=== PATIENT | female | born 1985 ===

== ENCOUNTER → 2019-10-18 09:20 | Outpatient (CLI) | payer OTHER, MEDICAID, SELFPAY ==
--- NOTE | 2019-10-18 | DI.US.S_ITS ---
PROCEDURE: US OB >= 14 WEEKS FETUS INDICATIONS: ANATOMY SCAN OUTSIDE/PRIOR DATING DATA: Last menstrual period (LMP): 06/01/19. LMP-based estimated date of delivery (GEOVANNA): 03/07/20. First dating scan (date and location): Outside facility. Estimated date of delivery (GEOVANNA) from first dating scan: 03/07/20. TECHNIQUE: Real-time scanning was performed of the fetus, with image documentation and biometric measurements. Endovaginal scanning: Not performed COMPARISON: None. FINDINGS: General: A single living intrauterine gestation is present. Presentation: Vertex Placenta: Placental position is posterior, without previa. Amniotic fluid index: 10 cm, normal range is 5-24 cm. heart rate: 140 beats per minute. Maternal cervical canal: 4.8 cm long. Normal lower limit is 2.5 cm. biometrics: Biparietal diameter: 4.3 cm, 18 weeks, 6 days Head circumference: 16.2 cm, 19 weeks, zero Abdominal circumference: 13.7 cm, 19 weeks, one day Femur length: 3.1 cm, 19 weeks, 6 days Estimated gestational age from initial scan: 19 weeks 6 days. Composite gestational age from present scan: 19 weeks, 2 days Estimated weight and percentile: 282 g, 16% Measurement variability for biometric dating: +/- 7 days from 14 weeks to 15 weeks 6 days gestation, +/- 10 days from 16 weeks to 21 weeks 6 days gestation, +/- 2 weeks from 22 weeks to 27 weeks 6 days gestation, +/- 3 weeks for 28 weeks gestation or later. weight reference: 4500 g or EFW >90/95% is considered macrosomia or large for gestational age. EFW <10% is small for gestational age. EFW 5% or less is considered intra-uterine growth restriction. Anatomic survey: Neuro: Ventricles are non-dilated at less than 10 mm. Cisterna magna is normal at 3-11 mm. Cerebellum is normal in size and morphology. Nuchal skin fold: Normal at less than 6 mm between 14-21 weeks gestational age. Face: Nose and lips, facial profile are normal. Spine: No evidence for spina bifida. Heart: 4-chambered heart is present, with normal ventricular outflow tracts. Diaphragm: Diaphragm is intact. Stomach: Left-sided stomach is present. Kidneys: No hydronephrosis. Normal is less than 5 mm in 2nd trimester, less than 7 mm in 3rd trimester. Cord: 3-vessel cord has orthotopic insertion. Bladder: Normal in size. Extremities: All 4 extremities identified. IMPRESSION: Single live intrauterine with fetus in cephalic presentation. heart rate is 140 beats per minute. Normal amount of amniotic fluid. Normal growth. Normal anatomic survey. Dictated by: Lai Mello M.D. on 10/18/2019 at 12:33 Approved by: Lai Mello M.D. on 10/18/2019 at 12:38
== END ==
PROVIDERS: Referring Provider Family Medicine; Visit Provider Family Medicine
DX: Z36.89 Encounter for other specified antenatal screening (principal); Z3A.19 19 weeks gestation of pregnancy
CPT/HCPCS: 76811

== ENCOUNTER → 2020-02-12 11:32 | Outpatient (ROUT) | payer OTHER, MEDICAID, SELFPAY | PROVIDERS: Visit Provider Family Medicine | DX: R82.71 Bacteriuria (principal) | CPT/HCPCS: 87081 ==

== ENCOUNTER → 2020-03-07 14:49 | Outpatient (CLI) | payer OTHER, MEDICAID, SELFPAY ==
[2020-03-08 06:00] LABS: COVID19 Sendout Not Detected (Not Detect)
== END ==
PROVIDERS: Visit Provider Physician Assistant
DX: Z11.59 Encounter for screening for other viral diseases (principal)
CPT/HCPCS: 85461; 87635

== ENCOUNTER 2020-03-08 05:11 | Inpatient (IN) | payer OTHER, MEDICAID, SELFPAY ==
[2020-03-08 06:12] VITALS: BP 122/75
[2020-03-08 06:47] LABS: Add Manual Diff / Slide Review NO; Basophils Absolute Auto 100 /uL (0-100); Basophils Percent Auto 0.9 % (0-2); Eosinophils Absolute Auto 200 /uL (0-450); Eosinophils Percent Auto 1.3 % (2-4); Hematocrit 33.8 % (36-46); Lymphocytes Absolute Auto 2200 /uL (1100-4500); Lymphocytes Percent Auto 15.6 % (25-40); Mean Corpuscular HGB Conc 32.6 % (30-36); Mean Corpuscular Hemoglobin 25.9 PG (26-34); Mean Corpuscular Volume 79.4 fL (80-100); Monocytes Absolute Auto 700 /uL (0-900); Monocytes Percent Auto 5.2 % (3-14); Neutrophils Absolute Auto 10900 /uL (1500-7000); Platelet Count 250 X10^3/uL (150-400); Red Blood Cell Count 4.25 X10^6/uL (4.0-5.2); Red Cell Distribution Width 14.6 % (11.6-14.8); White Blood Cell Count 14.2 X10^3/uL (4.5-11.0)
[2020-03-08] MEDS: LACTATED RINGERS 1,000 ML 100 ML IV (07:44)
[2020-03-08] MEDS: OXYTOCIN PREMIX 30 UNIT/500 ML PLAST..BAG IV (08:06)
--- NOTE | 2020-03-08 09:07 | PM.OBHP.1 ---
OB HPI Date/Time Date of admission: 03/08/20 Date Patient Seen: 03/08/20 Time Patient Seen: 09:07 History of Present Condition Chief complaint: Evaluation of labor : 3 Para: 1 Estimated Date of Delivery: 03/08/20 Estimated Gestational Age (weeks): 40 Narrative: Mitzi Borwn is a 35 year old female with EDC today. Forty weeks. Uncomplicated . Good dates. Healthy patient. No other issues. Was in her usual state health yesterday doing well good movement around midnight she ruptured with clear fluid. Good movement throughout the night around 3:00 a.m. started having increased contractions presented here around 11/11/2029 period was having intermittent contractions. Due to the fact that no change was made Pitocin was began. No other changes. Patient has had epidural. Excellent results. Patient has a history of depression was started on sertraline during this . No complications. Low-dose and working well. Indications Other reason(s) for admission: A room History of Present care: good care Dating criteria: LMP confirmed by 1st trimester US Ultrasounds: normal mid trimester US Obstetrical complications: none Medical complications: psychiatric Preadmission Labs Blood type: 0 (-) negative -: Antibody screen: negative, Cystic fibrosis screen: unknown, GBS status: negative, HBsAG: negative, HIV: negative, HSV 1: negative, HSV 2: negative and RPR/VDLR: negative -: Chlamydia screen: not detected and Gonorrhea screen: not detected -: Rubella: immune and Varicella: unknown HCT: 33 HCAB: negative PAP: Normal Integrated screen: Normal 1 hr GTT: 92 Prior (ies) History: 07/14/2016 miscarriage [id number] weeks 20 hours labor female 7.125 lb healthy Evaluation Evaluation Baseline heart rate: 130 Variability: Marked (>25) monitor accelerations: Uniform monitor decelerations: Absent Uterine Contraction Intensity: Moderate Category of Tracing: Reactive Cervical dilation (cm): 2 Cervical effacement (%): 70 station: -1 Laboratory results: Laboratory Tests 03/08/20 03/08/20 06:35 06:35 WBC 14.2 H RBC 4.25 Hgb 11.0 L Hct 33.8 L MCV 79.4 L MCH 25.9 L MCHC 32.6 RDW 14.6 Plt Count 250 Neut % (Auto) 77.0 H Lymph % (Auto) 15.6 L Overton % (Auto) 5.2 Eos % (Auto) 1.3 L Baso % (Auto) 0.9 Neut # (Auto) 79289 H Lymph # (Auto) 2200 Overton # (Auto) 700 Eos # (Auto) 200 Baso # (Auto) 100 Blood Type O Negative Antibody Screen Negative [facility] Social History Smoking Status: Never smoker Exam Vital Signs (past 8 hours): - 03/08/20 06:12 Blood Pressure 122/75 Narrative Exam Narrative: Alert smiling female in no acute distress. Comfortable lying in bed. Lungs are clear. Heart regular rate and rhythm. Abdomen is gravid vertex nontender. Extremities unremarkable. Neurologic exam is normal Objective Labs Result Diagrams: 03/08/20 06:35 Labs: Laboratory Results - last 24 hr 03/08/20 03/08/20 06:35 06:35 WBC 14.2 H RBC 4.25 Hgb 11.0 L Hct 33.8 L MCV 79.4 L MCH 25.9 L MCHC 32.6 RDW 14.6 Plt Count 250 Neut % (Auto) 77.0 H Lymph % (Auto) 15.6 L Overton % (Auto) 5.2 Eos % (Auto) 1.3 L Baso % (Auto) 0.9 Neut # (Auto) 26218 H Lymph # (Auto) 2200 Overton # (Auto) 700 Eos # (Auto) 200 Baso # (Auto) 100 Blood Type O Negative Antibody Screen Negative Assessment and Plan Assessment and Plan Assessment and Plan narrative: Forty week intrauterine status post rupture now on Pitocin for augmentation and epidural. Will continue to monitor baby looks great. Will continue to monitor re-evaluate 2-4 hours
--- NOTE | 2020-03-08 13:13 | PM.OBPNLAB ---
Date/Time Date Patient Seen: 03/08/20 Time Patient Seen: 13:13 Pain Control Pain control: tolerating well Pelvic Exam Dilation (cm): 5 Effacement (%): 70 station: -1 Amniotic membrane status: Ruptured Contractions Contraction intensity: Moderate Status status: Category l Assessment and Plan Assessment: active labor Comments: Doing well. Will continue to use Pitocin. May need to consider epidural change. Re-evaluate in 1 hour so
--- NOTE | 2020-03-08 15:39 | P.PCNOB_ITS ---
Labor & Delivery Delivery date: 03/08/20 Intrapartal events: None Cervical ripening method: none Induction method: none Delivery augmentation: pitocin Delivery monitor: external FHT Route of delivery: L&D Laceration Description: Perineal - 2nd Degree Delivery repair: vicryl Estimated blood loss (mL): 100 Anesthesia type: Epidural Complications: None Narrative: Patient presented with spontaneous rupture. Clear fluid. Good movement. Had been ruptured for approximately 5 hours. Really was having no contractions. After discussion and her 2 cm cervix she was placed on Pitocin. First stage was uncomplicated. She had epidural placed with excellent results. heart monitor was category 1 throughout the for stage. No other significant issues or complaints. We transitioning to to second-stage and we pu shed for less than an hour. There was some slight discoloration was at the end. 0 way over second-degree perineal tear. Child was delivered head without complications no nuchal cord. Bulb suction of the oropharynx and nose. Child was then delivered up onto the abdomen crying immediately. No resuscitation. Cord was cut and clamped by dad. Cord blood was obtained. Three-vessel cord. Placenta delivered spontaneous intact. No cervical or vaginal tears. Perineal tear which was small was repaired with 3-0 running Vicryl no anesthesia was required. EBL is less than 150 cc. Mother and infant in stable condition. Plan for aftercare: Patient will be recovered in usual manner in may to .
[2020-03-08] MEDS: IBUPROFEN 600 MG TABLET PO (18:33)
[2020-03-09] MEDS: IBUPROFEN 600 MG TABLET PO ×2 (04:56→11:30)
[2020-03-09 06:03] LABS: Hematocrit 30.9 % (36-46); Hemoglobin 10.2 g/dL (12.0-16.0)
[2020-03-09 10:05] VITALS: BP 131/80; PULSE 82; RESP 16; TEMP 36.6
[2020-03-09] MEDS: RHO(D) IMMUNE GLOBULIN 1,500 UNIT SYRINGE 1500 UNIT IM (11:31)
--- NOTE | 2020-03-09 13:45 | PM.OBDS.1 ---
Discharge Providers Provider Date of admission: 03/08/20 05:11 Discharge Date: 03/09/20 Primary care physician: Doctor Hari MD Consults: 03/09/20 15:37 Consult to [employer]anger Routine Comment: Discharge provider: Phillip Mcwilliams MD Summary Hospital Course Date Patient Seen: 03/09/20 Time Patient Seen: 13:46 Hospital Course: Patient delivered without complications transferred to recovery and has done well. Pain is minimal bleeding is minimal no other complications. Usual Education done. Peripartum Data Infant Delivery Method: Natural Vaginal Laceration Description: Perineal - 2nd Degree Procedures: Normal vaginal delivery complications: none Status at Discharge Cognitive/behavioral status at discharge: at baseline, oriented Functional status at discharge: independent ambulation Overall status at discharge: patient is back to baseline Time Spent with Patient Time attestation: Total time spent providing and/or coordinating discharge services: Objective Labs Result Diagrams: 03/09/20 05:50 Labs: Laboratory Results - last 24 hr 03/09/20 05:50 Hgb 10.2 L Hct 30.9 L Exam Vital Signs (past 8 hours): Alert smiling female in no acute distress. Lungs are clear. Heart regular rate and rhythm. Abdomen is soft positive bowel sounds nontender. Extremities without cyanosis clubbing edema. Discharge Plan Discharge Plan Patient Disposition: Home Discharge comment: Please call for appointment in 6 weeks Discharge orders & Medications Prescriptions: New ibuprofen 600 mg Tablet 600 mg PO Q6HR PRN (Reason: Pain, Mild (1-3)) Qty: 90 RF: 1 Continued sertraline [Zoloft] 25 mg tablet 25 mg PO DAILY RF: 0 Follow up/Referrals: Doctor Noriega MD [Primary Care Provider] - Phillip Mcwilliams MD [Physician] - 6 Weeks (Please call for appointment) Discharge Health Status Multidrug resistant organism: No MDRO Diet/Activity/Treatments Diet: Diet as Tolerated Diet comment: As tolerated Skin/Wound/Dressing Care Report to your healthcare provider any signs of infection, such as:: chills, fever, increased pain and unusual drainage Discharge Data Primary Care Provider: Doctor Hari
[2020-03-09] MEDS: DERMOPLAST SPRAY 20% 60 ML 1 SPRAY TOP (14:21)
== END 2020-03-09 15:15 | disposition home or self-care (01) | DRG 560 ==
PROVIDERS: Admitting Provider Family Medicine; Referring Provider Family Medicine; Visit Provider Family Medicine
DX: O42.02 Full-term premature rupture of membranes, onset of labor within 24 hours of rupture (principal); Z3A.40 40 weeks gestation of pregnancy; Z37.0 Single live birth; O70.1 Second degree perineal laceration during delivery; Z11.59 Encounter for screening for other viral diseases
CPT/HCPCS: 01967; 36415; 59025; 85014; 85018; 85025; 85461; 86850; 86900; 86901; 87635; G0379; J2590; J2790

== ENCOUNTER → 2020-08-05 08:03 | Outpatient (CLI) | payer OTHER, MEDICAID, SELFPAY ==
--- NOTE | 2020-08-05 | DI.ECHO.S_ITS ---
[facility]---------+ [facility] +---------+ : : [address] : [place] : : : : [id number] : : : : Phone: [phone] Echocardiogram Report + + :Name: DERRICK MONROY Study Date: 08/05/2020 Height: 70 in : :[facility] ReadingLocation: Weight: 260 lb : : Gender: Female BSA: 2.3 m2 : :: 1985 Age: 35 yrs BP: 117/80 mmHg: :Reason For Study: FAMILY HISTORY OF ISCHEMIC HEART DISEASE : :Ordering Physician: ZARINA, : :JUAN Performed By: Emilia Bray : :Referring: JUAN SRINIVASAN : + + Interpretation Summary The left ventricle appears normal in size and systolic function with an estimated ejection fraction of 60 to 65% without any focal wall motion abnormality. Diastolic function is likely normal with normal filling pressures. The right ventricle appears normal in size and systolic function. Right ventricular systolic pressure cannot be estimated but CVP is likely around 3 mmHg. Both atria are normal in size. The aortic valve is not well visualized but appears to be slightly calcified yet opens well. There is mild aortic regurgitation. There is no other significant valvular abnormality. Procedure: A two-dimensional transthoracic echocardiogram with color flow and Doppler was performed. The study quality was technically adequate. There is no prior echocardiogram noted for this patient. The patient was in sinus rhythm with heart rates between 61-89 bpm during the exam. Left Ventricle: The left ventricle appears normal in size, wall thickness, and systolic function without any focal wall motion abnormalities. The ejection fraction is estimated to be 60-65%. Diastolic parameters suggest probable normal left ventricular diastolic function and normal filling pressures. Right Ventricle: The right ventricle is normal in size and function. Atria: Both atria are normal in size. There is no Doppler evidence for an interatrial shunt. Mitral Valve: The mitral valve is normal in structure and function. There is trace mitral regurgitation. Aortic Valve: The aortic valve is not well visualized. The aortic valve is trileaflet. The aortic valve is slightly calcified. The aortic valve opens well. There is no aortic valve stenosis. There is mild aortic regurgitation. Tricuspid Valve: The tricuspid valve is normal in structure and function. No tricuspid regurgitation. Pulmonary artery pressures cannot be estimated because of the lack of a measurable TR jet velocity but the IVC suggests a CVP of around 3 mmHg. Pulmonic Valve: The pulmonic valve leaflets are thin and pliable; valve motion is normal. There is no pulmonic valvular regurgitation. There is no other significant valvular heart disease. Great Vessels: The aortic root is not well visualized. The dimensions of the ascending aorta are normal. The IVC is of normal diameter and collapses greater than 50% with a sniff. This suggests a low right atrial pressure of 3 mm Hg. Pericardium/ Pleura There is no pericardial effusion. There is no pleural effusion. MMode/2D Measurements & Calculations LVIDd: 5.2 cm LVOT diam: 2.2 cm LVIDs: 3.2 cm Ao root diam: 2.4 cm FS: 39.2 % asc Aorta Diam: 2.5 cm EPSS: 0.76 cm Ao Arch Diam (Prox Trans): 2.8 cm IVSd: 0.94 cm LVPWd: 0.81 cm LV vazquez. diameter/BSA (cm/m^2): 2.2 LV sys. diameter/BSA (cm/m^2): 1.4 LA A2 area: 24.3 cm2 RA long axis: 4.7 cm LA A4 area: 19.2 cm2 RA area: 16.4 cm2 LA length (vol): 5.2 cm RA vol: 48.5 ml LA vol: 76.1 ml RA : 20.8 ml/m2 LA vol index: 32.6 ml/m2 IVC diam: 1.7 cm RVD1 (basal): 3.5 cm TAPSE: 2.2 cm Doppler Measurements & Calculations Ao V2 max: 163.4 cm/sec LVOT Max Ger: 122.5 cm/sec Ao V2 mean: 112.3 cm/sec LV V1 max P.0 mmHg Ao max P.7 mmHg LV V1 VTI: 23.3 cm Ao mean P.7 mmHg MINDY(I,D): 2.5 cm2 Ao V2 VTI: 34.6 cm MINDY(V,D): 2.8 cm2 sev ratio: 0.67 MIDNY indexed to BSA (cm^2/m^2): 1.1 AI P1/2t: 1109 msec AI dec slope: 105.9 cm/sec2 MV E max ger: 85.6 cm/sec PA V2 max: 93.4 cm/sec MV A max ger: 78.3 cm/sec PA V2 mean: 65.1 cm/sec MV E/A: 1.1 PA mean P.9 mmHg Med Peak E' Ger: 9.5 cm/sec PA pr(Accel): 46.5 mmHg E/E' med: 9.1 Lat Peak E' Ger: 14.2 cm/sec E/E' lat: 6.0 E/e' average: 7.5 MV dec time: 0.22 sec SV(LVOT): 85.6 ml Reading Physician:10:20 AM
== END ==
PROVIDERS: PCP Family Medicine; Referring Provider Family Medicine; Visit Provider Family Medicine
DX: I35.1 Nonrheumatic aortic (valve) insufficiency (principal); Z82.49 Family history of ischemic heart disease and other diseases of the circulatory system
CPT/HCPCS: 93306

== ENCOUNTER → 2022-12-28 12:14 | Outpatient (CLI) | payer OTHER, MEDICAID, SELFPAY ==
--- NOTE | 2022-12-28 | DI.US.S_ITS ---
PROCEDURE: US PELVIC COMPLETE INDICATIONS: Pelvic and perineal pain TECHNIQUE: Real-time scanning was performed of the pelvic organs, with image documentation. Additional endovaginal scanning was necessary due to incomplete visualization of the adnexal and endometrial structures by transabdominal scanning. COMPARISON: None. FINDINGS: Uterus: Uterus is retroverted and normal in size at 7.2 x 3.9 x 3 cm. The myometrium is homogeneous. The endometrium measures 5 mm combined thickness. The IUD is seen at its expected location. Ovaries: The right ovary measures 2.1 x 1.9 x 2.9 cm, with a calculated ovarian volume of 6 cc. The left ovary measures 2 x 3.5 x 1.6 cm, with a calculated ovarian volume of 6 cc. The ovaries have a normal sonographic appearance. Less than 12 follicles can be seen in each ovary. No adnexal masses are seen. Other: No pathologic free abdominal or pelvic fluid. IMPRESSION: A cause of pelvic pain is not identified. The IUD is seen at its expected location. We strive to produce accurate, complete, and clear reports of imaging services. To assist us in improving patient care, this report was composed using standard report templates and voice recognition software. Therefore, it may contain abnormal punctuation, insertions and/or omissions. Occasional wrong-word or sound-alike substitutions may occur. Though we review the report and make efforts to correct it, we do recommend that the report be read carefully in proper context to recognize any text inaccuracies. Dictated by: Luke Carlos M.D. on 12/28/2022 at 17:53 Approved by: Luke Carlos M.D. on 12/28/2022 at 17:55
== END ==
PROVIDERS: PCP Family Medicine; Referring Provider Internal Medicine; Visit Provider Internal Medicine
DX: R10.2 Pelvic and perineal pain (principal); Z30.431 Encounter for routine checking of intrauterine contraceptive device
CPT/HCPCS: 76830; 76856; 93976

== ENCOUNTER → 2024-02-13 18:38 | Outpatient (CLI) | payer OTHER, SELFPAY ==
--- NOTE | 2024-02-13 18:39 | DI.MRI.S_ITS ---
PROCEDURE: MR CERVICAL SPINE WO CON INDICATIONS: worsening radiculopathy TECHNIQUE: Noncontrast sagittal T1 spin echo and T2 fast spin echo, sagittal STIR, foraminal oblique sagittal T2 fast spin echo, and axial gradient echo or T2 fast spin echo through the cervical spine. COMPARISON: None. FINDINGS: Image quality: This examination is limited by involuntary motion artifact. Alignment and Curvature: Reversal of the normal cervical lordosis is seen, with the apex at the C4-C5 level. No focal AP alignment abnormality is seen. S-shaped scoliotic curvature is seen. Bone Marrow: Marrow demonstrates normal overall signal. Spinal Cord: Visualized spinal cord has normal size and signal. No cerebellar tonsillar herniation. Paraspinous Soft Tissues: No paravertebral masses. Prevertebral soft tissues are normal in thickness. C2-C3: Normal appearance. C3-C4: The disc height and disk signal are well-preserved. A mild degree of generalized disc osteophyte complex is seen. No significant neural foraminal or central canal narrowing can be seen. C4-C5: The disc height and disk signal are relatively well-preserved. Mild to moderate disc osteophyte complex is seen, with a mild central/left disc osteophyte protrusion. Minimal facet hypertrophy is seen. There is moderate left-sided and no significant right-sided neural foraminal narrowing. Mild to moderate central canal narrowing is seen. Minimal mass effect is seen upon the ventral spinal cord. C5-C6: [id number] loss of disc height and disc signal can be seen. Mild disc osteophyte complex is seen, with a central/left disc osteophyte protrusion. Mild facet joint hypertrophy is seen. There is moderate right-sided and moderate to severe left-sided neural foraminal narrowing. Mild central canal narrowing is seen. C6-C7: [id number] loss of disc height and disc signal can be seen. Moderate disc osteophyte complex is seen, which is eccentric to the right, with a right subarticular/foraminal disc osteophyte protrusion, as on series 5, image 34. Mild facet joint hypertrophy is seen. There is moderate to severe right-sided and at least moderate left-sided neural foraminal narrowing. Mild central canal narrowing is seen. C7-T1: The disc height and disk signal are well-preserved. A mild degree of generalized disc osteophyte complex is seen. Mild facet joint hypertrophy is seen. No central canal narrowing is seen. IMPRESSION: Multiple levels of degenerative change can be seen, which are worst at the C5-C6 and C6-C7 levels. Reversal of the normal cervical lordosis is seen. This is commonly observed in patients with muscular spasm. Dictated by: Luke Carlos M.D. on 02/14/2024 at 10:15 Approved by: Luke aCrlos M.D. on 02/14/2024 at 10:19
== END ==
LOC: MRI 18:38
PROVIDERS: PCP Family Medicine; Referring Provider Family Medicine; Visit Provider Family Medicine
DX: M54.10 Radiculopathy, site unspecified (principal); M47.812 Spondylosis without myelopathy or radiculopathy, cervical region; M54.2 Cervicalgia
CPT/HCPCS: 72141

== ENCOUNTER → 2024-06-14 12:55 | Outpatient (CLI) | payer BC, SELFPAY ==
[2024-06-14 14:37] LABS: Add Manual Diff / Slide Review NO; Basophils Absolute Auto 100 /uL (0-100); Basophils Percent Auto 1.3 % (0-2); Eosinophils Absolute Auto 200 /uL (0-450); Eosinophils Percent Auto 2.2 % (2-4); Hematocrit 42.5 % (36-46); Hemoglobin 14.1 g/dL (12.0-16.0); Lymphocytes Absolute Auto 2000 /uL (1100-4500); Lymphocytes Percent Auto 24.4 % (25-40); Mean Corpuscular HGB Conc 33.2 % (30-36); Mean Corpuscular Hemoglobin 29.8 PG (26-34); Mean Corpuscular Volume 89.8 fL (80-100); Monocytes Absolute Auto 400 /uL (0-900); Monocytes Percent Auto 4.4 % (3-14); Neutrophils Absolute Auto 5500 /uL (1500-7000); Neutrophils Percent Auto 67.7 % (50-75); Platelet Count 305 X10^3/uL (150-400); Red Blood Cell Count 4.74 X10^6/uL (4.0-5.2); Red Cell Distribution Width 13.5 % (11.6-14.8); White Blood Cell Count 8.2 X10^3/uL (4.5-11.0)
[2024-06-14 15:04] LABS: Alanine Aminotransferase 31 IU/L (<35); Albumin 4.7 g/dL (3.5-5.0); Albumin Globulin Ratio 1.7 (1.0-2.8); Alkaline Phosphatase 46 U/L (38-126); Aspartate Aminotransferase 33 IU/L (14-36); BUN Creatinine Ratio 26.2 (6-22); Blood Urea Nitrogen 17 mg/dL (7-17); Calcium 9.2 mg/dL (8.4-10.2); Carbon Dioxide 28 mmol/L (22-32); Chloride 106 mmol/L (98-107); Estimated Glomerular Filt Rate > 60 mL/min (>60); Globulin 2.7 g/dL (1.7-4.1); Glucose 83 mg/dL (70-100); HEMOLYSIS < 15 (0-50); Potassium 3.8 mmol/L (3.4-5.1); Sodium 140 mmol/L (137-145); Total Protein 7.4 g/dL (6.3-8.2)
[2024-06-14 15:06] LABS: HEMOLYSIS < 15 (0-50); Iron 72 ug/dL (37-170)
[2024-06-14 15:16] LABS: Percent Iron Saturation 34 % (15-50); Total Iron Binding Capacity 213 ug/dL (265-497); Transferrin 195 mg/dL (206-381)
[2024-06-14 15:37] LABS: TSH w/ Reflex to FT4 2.27 uIU/mL (0.47-4.68)
[2024-06-14 15:39] LABS: Ferritin 92 ng/mL (6-137)
[2024-06-14 16:13] LABS: Folate 9.4 ng/mL (2.76-20.0); Vitamin B12 517 pg/mL (239-931)
== END ==
PROVIDERS: PCP Family Medicine; Referring Provider Family Medicine; Visit Provider Family Medicine
DX: R41.3 Other amnesia (principal); R63.0 Anorexia; R55 Syncope and collapse; R19.00 Intra-abdominal and pelvic swelling, mass and lump, unspecified site
CPT/HCPCS: 80053; 82607; 82728; 82746; 83540; 83550; 84443; 85025

== ENCOUNTER → 2024-06-24 09:13 | Outpatient (CLI) | payer BC, SELFPAY ==
--- NOTE | 2024-06-24 09:14 | DI.CT.S_ITS ---
PROCEDURE: CT ABDOMEN PELVIS WO CON INDICATIONS: Anorexia TECHNIQUE: Axial sections were acquired from the lung bases to the pubic symphysis. Coronal and sagittal reformats were performed. For radiation dose reduction, the following was used: automated exposure control, adjustment of mA and/or kV according to patient size. COMPARISON: None. FINDINGS: Image quality: Diagnostic. Lower Chest: No significant findings. URINARY: Right Kidney: No stones or hydronephrosis. Right Ureter: No hydroureter. Left Kidney: No stones or hydronephrosis. Left Ureter: No hydroureter. Bladder: Normal wall thickness. No stones. ABDOMEN: Liver: No contour-deforming solid mass. Gallbladder: No radiopaque gallstones or wall thickening. Biliary ducts: No biliary dilation. Pancreas: No ductal dilation. Spleen: Size is within normal limits. Adrenal Glands: No adrenal nodules. Stomach and Bowel: Normal colonic caliber, without significant wall thickening. Peritoneum: No abnormal intraperitoneal fluid. No free air. Ventral Wall: No hernia. Abdominal Nodes: No enlarged retroperitoneal or mesenteric lymph nodes. Vessels: Aorta and inferior vena cava are normal in size. PELVIS: Pelvic Organs: Unremarkable. IUD in place. Pelvic Nodes: Unremarkable. Miscellaneous: No inguinal hernias are seen. Trace free pelvic fluid likely physiologic in a patient of this age. Bones: Unremarkable. IMPRESSION: No radiographic abnormality to correlate etiology for patient's symptoms. Dictated by: Enzo Dimas M.D. on 06/24/2024 at 14:51 Approved by: Enzo Dimas M.D. on 06/24/2024 at 14:54
--- NOTE | 2024-06-24 09:50 | DI.MRI.S_ITS ---
PROCEDURE: MR HEAD/BRAIN WO/W CON INDICATIONS: Syncope, sudden memory loss TECHNIQUE: Noncontrast axial T1 spin echo, axial T2 fast spin echo, sagittal and axial FLAIR, coronal T2 fast spin echo, axial gradient echo, axial diffusion and ADC through the brain. After the administration of contrast, axial and coronal and sagittal 3D VIBE or T1 spin echo with fat saturation through the brain. COMPARISON: None. FINDINGS: Image quality: Excellent. CSF Spaces: Basal cisterns are patent. No extra-axial fluid collections. Ventricles are normal in size and shape. Brain: No midline shift. No intracranial bleeds or masses. No abnormal intracranial enhancement. The brainstem appears normal. Diffusion-weighted images demonstrate no acute infarct. No chronic ischemic insults. Normal intravascular flow voids are present. Skull and face: Calvarial marrow is normal in signal. Orbits appear normal. Sinuses: There is moderate mucosal thickening seen within the posterior right maxillary sinus. Sinuses and mastoids otherwise appear clear. IMPRESSION: No imaging explanation is found for this patient's presenting symptoms. No masses or abnormal enhancement can be seen. No findings of acute or subacute infarction can be seen. No prior territorial infarct can be seen. Additional findings: Focal right maxillary sinus disease Dictated by: Luke Carlos M.D. on 06/24/2024 at 10:32 Approved by: Luke Carlos M.D. on 06/24/2024 at 10:34
== END ==
LOC: MRI 09:14
PROVIDERS: PCP Family Medicine; Referring Provider Family Medicine; Visit Provider Family Medicine
DX: J32.0 Chronic maxillary sinusitis (principal); R55 Syncope and collapse; R41.3 Other amnesia; R63.0 Anorexia; Z97.5 Presence of (intrauterine) contraceptive device
CPT/HCPCS: 70553; 74176; 93246; A9579

== ENCOUNTER → 2024-06-24 13:27 | Outpatient (CLI) | payer BC, SELFPAY | LOC: CAR 13:28 | PROVIDERS: PCP Family Medicine; Referring Provider Family Medicine; Visit Provider Family Medicine | DX: R55 Syncope and collapse (principal) | CPT/HCPCS: 93246 ==

== ENCOUNTER → 2024-07-08 16:40 | Outpatient (CLI) | payer BC, SELFPAY ==
--- NOTE | 2024-07-08 16:42 | DI.MG.S_ITS ---
BILATERAL DIGITAL SCREENING MAMMOGRAM 3D/2D WITH CAD: 07/08/2024 CLINICAL: Baseline exam. Routine screening. Family history of Breast Cancer. No prior exams were available for comparison. The breasts are heterogeneously dense, which may obscure small masses (category c / 51-75% glandular tissue). Current study was also evaluated with a Computer Aided Detection (CAD) system. There is a possible irregular equal density asymmetry in the left breast middle depth superior region seen on the mediolateral oblique view only. There also is a possible focal asymmetry in the left breast at 6 o'clock anterior depth. No other significant masses, calcifications, or other findings are seen in either breast. IMPRESSION: INCOMPLETE: NEED ADDITIONAL IMAGING EVALUATION The possible irregular equal density asymmetry in the left breast middle depth superior region seen on the mediolateral oblique view only resembles fibroglandular tissue and is indeterminate. Additional views with possible ultrasound are recommended. The possible focal asymmetry in the left breast at 6 o'clock anterior depth resembles fibroglandular tissue and is indeterminate. Additional views with possible ultrasound are recommended. Based on Tyrer-Cuzick model (a risk assessment model), the patient's lifetime risk is 27.8% and her 10 year risk is 4.1%. If a patient has an elevated risk, a more comprehensive evaluation should be considered and/or a referral to a genetic counselor. The [place], [employer], and NCCN Guidelines advise the consideration of Breast MRI as an adjunct to screening mammography in patients whose Lifetime risk to develop breast cancer is 20% or higher. This exam was interpreted at Station ID: [id number]. NOTE: For mammograms, a report in lay terms will be sent to the patient. Approximately 15% of breast malignancies will not be visualized mammographically. In the management of a palpable breast mass, a negative mammogram must not discourage biopsy of a clinically suspicious lesion. Electronically Signed By: Amilcar Zapata M.D. aty/:07/09/2024 08:07:52 letter sent: Additional Imaging Needed ACR BI-RADS Category 0: Incomplete: Need Additional Imaging Evaluation
== END ==
PROVIDERS: PCP Family Medicine; Referring Provider Family Medicine; Visit Provider Family Medicine
DX: Z12.31 Encounter for screening mammogram for malignant neoplasm of breast (principal); Z80.3 Family history of malignant neoplasm of breast; R92.333 Mammographic heterogeneous density, bilateral breasts
CPT/HCPCS: 77063; 77067